=== PATIENT | male | born 1960 | race Caucasian/White ===

== ENCOUNTER 2021-10-11 18:20 | Outpatient (CLI) | payer OTHER, SELFPAY ==
[2021-10-11 18:22] VITALS: BP 129/80; PULSE 91; RESP 16; TEMP 37.9; O2SAT 96; BMI 31.8
[2021-10-11 19:00] VITALS: BP 132/75; PULSE 83; RESP 16; TEMP 38.4; O2SAT 95
[2021-10-11] MEDS: 0.9% Saline Lock 10 ML Syringe IV (19:13)
[2021-10-11 19:57] VITALS: BP 121/83; PULSE 80; RESP 16; TEMP 38.3; O2SAT 96
== END 2021-10-11 20:12 | disposition home or self-care (01) ==
LOC: MS3OUT 18:20 → MS3 18:21
PROVIDERS: PCP Family Medicine; Referring Provider Nurse Practitioner Adult Health; Visit Provider Nurse Practitioner Adult Health
DX: Z23 Encounter for immunization (principal); U07.1 COVID-19
CPT/HCPCS: J7050; M0245; Q0245; A4216